=== PATIENT | female | born 1955 | race African-American/Black ===

== ENCOUNTER 2021-07-09 14:45 | Emergency (ER) | payer OTHER, SELFPAY ==
--- NOTE | ~2021-07-09 | XR_ITS ---
EXAMINATION: XR chest 2V EXAM DATE: 07/09/2021 15:42 INDICATION: Shortness of breath TECHNIQUE: Frontal and lateral projections of the chest obtained and reviewed. There is no prior cresencio dy for comparison. FINDINGS: There is cardiomegaly. Linear left midlung zone atelectasis. The lungs are otherwise clear . There are no pleural effusions. The cardiomediastinal silhouette is within normal limits. There is no pneumothorax suspected. The bones and soft tissues are unremarkable. The lungs are hyperinfla apolonia which can be seen with chronic obstructive pulmonary disease (a clinical diagnosis of functional impairment), but is not diagnostic of it. IMPRESSION: 1. Linear left midlung zone subsegmental atelectasis. 2. Hyperinflation. Reviewed, dictated and finalized at location [facility]. [employer]
[2021-07-09 15:16] VITALS: BP 154/70; PULSE 72; RESP 18; TEMP 37; O2SAT 99
--- NOTE | 2021-07-09 15:39 | ED.GENADULT ---
HPI - General Adult General Chief complaint: Shortness of Breath/Dyspnea Stated complaint: shortness of breath Source: patient and family Mode of arrival: ambulatory Limitations: no limitations History of Present Illness HPI narrative: Patient is a 66 y/o female who presents to [facility] for an evaluation of chronic sob that has worsened over 2 days. Accompanied by adult daughter. She also reports intermittent dizziness. Walking and lying on left side worsens sob. Lying on right side impoves sob. She states her pcp is aware of her sob and prescribed her an inhaler that sometimes minimizes sob. 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 She also states, my doctor tells me I am depressed . Daughter states, she lost her of 28 years 5 months ago. Related Data Home Medications Medication Instructions Recorded Confirmed albuterol sulfate 90 mcg INHALATION DIRECTED 07/09/21 07/09/21 amlodipine 10 mg PO DAILY 07/09/21 07/09/21 atenolol-chlorthalidone 1 tablet PO DAILY 07/09/21 07/09/21 atorvastatin 40 mg PO DAILY 07/09/21 07/09/21 citalopram 10 mg PO DAILY 07/09/21 07/09/21 clonidine HCl 0.1 mg PO DAILY 07/09/21 07/09/21 ergocalciferol (vitamin D2) 1,250 mcg PO WEEKLY 07/09/21 07/09/21 famotidine 20 mg PO BID 07/09/21 07/09/21 fenofibrate nanocrystallized 145 mg PO DAILY 07/09/21 07/09/21 furosemide 40 mg PO DAILY 07/09/21 07/09/21 gabapentin 300 mg PO TID 07/09/21 07/09/21 metformin 500 mg PO BID 07/09/21 07/09/21 potassium chloride 10 meq PO DAILY 07/09/21 07/09/21 Allergies Allergy/AdvReac Type Severity Reaction Status Date / Time latex Allergy Unknown Verified 07/09/21 15:29 Review of Systems Review of Systems: Denies history of COPD, bronchitis, asthma, and pneumonia. Denies current/past tobacco use. Pertinent negatives: fever, sweats, chills, change in appetite, fatigue, skin color changes, headache, nasal congestion/discharge, lymphadenopathy, sinus problems, ear pain/drainage, chest pain, heart murmurs, heart palpitations, wheezing, cyanosis, hemoptysis, hoarseness, orthopnea, pleuritic pain, nausea, vomiting, diarrhea, and myalgias. [facility] Past Medical History Medical History (Updated 07/09/21 @ 16:28 by Marco Renee, RIPSAW GRADER, ) Anxiety COPD (chronic obstructive pulmonary disease) Depression Diabetes mellitus GERD (gastroesophageal reflux disease) Hyperlipidemia Hypertension Vitamin D deficiency Comments I have reviewed and agree with the patient's past medical, surgical, social, and family hx as documented by the RN. There is no relevant family history pertinent to the presenting complaint. Exam Narrative: GENERAL: Well-appearing, well-nourished, and in no acute distress. HEAD: Normocephalic, atraumatic. No sinus tenderness or facial swelling appreciated. EYES: PERRLA and EOMI. No evidence of erythema, swelling, or drainage. ENT: Bilateral external ears and ear canals normal. Bilateral TMs are normal.No TM perforation. Nares clear, no rhinorrhea or epistaxis. Bilateral turbinates without erythema/ swelling. Mucous membranes moist and pink. Uvula is midline without erythema and swelling. No evidence of petechial rash, cobblestoning, lesions, ulcers, erythema, swelling, exudates, peritonsillar abscess, tenting, or drooling. Breath odor and voice normal. NECK: Supple. No Lymphadenopathy or nuchal rigidity appreciated. CHEST: Bilateral lung perry are clear to auscultation. No respiratory distress. No evidence of cough or pleuritic cp upon examination. HEART: Regular rate and rhythm. No murmur, gallop, or rub heard. EXTREMITIES: Normal range of motion. No edema. SKIN: Warm, dry, no rash. NEURO: No focal deficits. Alert and oriented x3. PSYCH: Alert and oriented x4. Appears anxious and depressed. Behaviors consistent with mood. Psychomotor agitation is present. Denies suicidal and homicidal ideation. Thought processes and content norm
--- NOTE | 2021-07-09 15:56 | ECG_ITS ---
Measurements Intervals [place] Rate: 68 P: 54 [place]: 174 QRS: 16 QRSD: 97 T: 37 QT: 390 QTc: 418 Interpretive Statements SINUS RHYTHM VOLTAGE CRITERIA FOR LVH CONSIDER INFERIOR INFARCT, AGE INDETERMINATE BORDERLINE ST-T WAVE ABNORMALITY- ANTEROLAT/HIGH LAT LEADS ABNORMAL ECG Electronically Signed On 07-09-2021 16:56:05 ELECTRONICS TECH by Angel Mclain D.O.
== END 2021-07-09 16:21 | disposition left against medical advice (07) ==
PROVIDERS: Emergency Provider Nurse Practitioner Family
DX: R06.02 Shortness of breath (principal); I45.10 Unspecified right bundle-branch block; J44.9 Chronic obstructive pulmonary disease, unspecified; E11.9 Type 2 diabetes mellitus without complications; E78.5 Hyperlipidemia, unspecified; I10 Essential (primary) hypertension; E55.9 Vitamin D deficiency, unspecified; F41.9 Anxiety disorder, unspecified; F32.A Depression, unspecified; Z79.84 Long term (current) use of oral hypoglycemic drugs
CPT/HCPCS: 71046; 93005; 99204; G0463

== ENCOUNTER 2021-11-09 18:20 | Emergency (ER) | payer OTHER, SELFPAY ==
[2021-11-09 18:50] VITALS: BP 154/73; PULSE 61; RESP 20; TEMP 36.7; O2SAT 99
--- NOTE | 2021-11-09 19:42 | ED.GENADULT ---
HPI - General Adult General Chief complaint: Extremity Injury, Lower Stated complaint: bilateral foot pain Source: patient Mode of arrival: ambulatory Limitations: no limitations History of Present Illness HPI narrative: Patient presents for evaluation of low back pain with radiation to the left lower extremity. Symptom onset 3 days ago. She cannot identify any precipitating cause/injury. She states she has a history of a lumbar spinal surgery. She states pain is constant, burning, radiating down posterior aspect of LLE. It does involve her left foot. She takes gabapentin 300mg PO TID for neuropathy associated with DM. She is not sure what her BS is at home but recent a1c was 5.7. She states she was recently on steroids for right shoulder pain. She is taking ibuprofen for her pain. She states it has been ineffective. No saddles anesthesia. No bladder/bowel incontinence. Related Data Home Medications Medication Instructions Recorded Confirmed albuterol sulfate 90 mcg/actuation 90 mcg inhalation DIRECTED 07/09/21 11/09/21 aerosol inhaler amlodipine 10 mg tablet 10 mg PO DAILY 07/09/21 11/09/21 atenolol 100 mg-chlorthalidone 25 1 tablet PO DAILY 07/09/21 11/09/21 mg tablet atorvastatin 40 mg tablet 40 mg PO DAILY 07/09/21 11/09/21 citalopram 10 mg tablet 10 mg PO DAILY 07/09/21 11/09/21 clonidine HCl 0.1 mg tablet 0.1 mg PO DAILY 07/09/21 11/09/21 ergocalciferol (vitamin D2) 1,250 1,250 mcg PO WEEKLY 07/09/21 11/09/21 mcg (50,000 unit) capsule famotidine 20 mg tablet 20 mg PO BID 07/09/21 11/09/21 fenofibrate nanocrystallized 145 145 mg PO DAILY 07/09/21 11/09/21 mg tablet furosemide 40 mg tablet 40 mg PO DAILY 07/09/21 11/09/21 gabapentin 300 mg capsule 300 mg PO TID 07/09/21 11/09/21 metformin 500 mg tablet,extended 500 mg PO BID 07/09/21 11/09/21 release 24 hr potassium chloride 10 mEq 10 meq PO DAILY 07/09/21 11/09/21 tablet,extended release Allergies Allergy/AdvReac Type Severity Reaction Status Date / Time latex Allergy Unknown Verified 11/09/21 19:14 Review of Systems Review of Systems: CONSTITUTIONAL: Denies fever, chills, or sweats. EYES: Denies visual changes, redness, or discharge. ENT: Denies rhinorrhea, congestion, sore throat, or otalgia. CARDIOVASCULAR: Denies chest pain, palpitations, or edema. RESPIRATORY: Denies cough or dyspnea. GASTROINTESTINAL: Denies abdominal pain, nausea, vomiting, or diarrhea. GENITOURINARY: Denies dysuria or hematuria. SKIN: Denies rash or itching. MUSCULOSKELETAL: Reports low back pain with radiation to the left lower extremity. NEUROLOGIC: Reports burning sensation in the left lower extremity. Denies dizziness, or weakness. PSYCHIATRIC: Denies anxiety or depression. [facility] Past Medical History Medical History (Updated 11/09/21 @ 19:49 by CARLY Ruiz, ) Anxiety COPD (chronic obstructive pulmonary disease) Depression Diabetes mellitus GERD (gastroesophageal reflux disease) Hyperlipidemia Hypertension Sciatica, left side Vitamin D deficiency Surgical History Surgical History History of lumbosacral spine surgery Family History Family History Mother Hypertension Social History Social History Smoking status: Never smoker Substance use: never Living arrangements: alone Gender identity (if verbalized by the patient): Female Sexual Orientation (if Verbalized by the Patient): Straight or Heterosexual Spiritual care concerns: No Exam Narrative: GENERAL: Visibly uncomfortable, seated in wheelchair. HEAD: Normocephalic, atraumatic. EYES: PERRLA and EOMI. ENT: Nares clear, no rhinorrhea or epistaxis. Mucous membranes moist. Oropharynx without tonsillar hypertrophy exudate or other lesions. Bilateral TMs pearly raza nonbulging NECK: Supple.
[2021-11-09] MEDS: methylPREDNISolone SOD SUCC 125 MG VIAL IM (19:46)
== END 2021-11-09 20:01 | disposition home or self-care (01) ==
PROVIDERS: Emergency Provider Nurse Practitioner
DX: M54.32 Sciatica, left side (principal); J44.9 Chronic obstructive pulmonary disease, unspecified; E11.9 Type 2 diabetes mellitus without complications; K21.9 Gastro-esophageal reflux disease without esophagitis; E78.5 Hyperlipidemia, unspecified; I10 Essential (primary) hypertension; E55.9 Vitamin D deficiency, unspecified; F41.9 Anxiety disorder, unspecified
CPT/HCPCS: 96372; 99213; G0463; J2930